=== PATIENT | male | born 1960 | race African-American/Black ===

== ENCOUNTER → 2017-06-27 | Outpatient (CLI) | payer BC | END | disposition home or self-care (01) | LOC: KCIC CT 15:17 | DX: J32.4 Chronic pansinusitis (principal) | CPT/HCPCS: 70486 ==

== ENCOUNTER 2017-12-22 12:30 | Inpatient (IN) | payer BC ==
[~2017-12-22] VITALS: Ht 180.3 cm; Wt 83.9 kg
[2017-12-22 13:15] LABS: BASO % 1 % (0-3); EOS % 1 % (0-3); HEMATOCRIT 46.5 % (39.0-53.0); HEMOGLOBIN 15.5 g/dL (13.0-17.5); LYMPH # 2.3 x10^3/uL (1.0-4.8); LYMPH % 51 % (24-48); MEAN CORPUSCULAR HEMOGLOBIN 30 pg (25-35); MEAN CORPUSCULAR HGB CONC 33 g/dL (31-37); MEAN CORPUSCULAR VOLUME 91 fL (79-100); MONO # 0.5 x10^3/uL (0.0-1.1); MONO % 11 % (0-9); NEUT # 1.6 x10^3uL (1.8-7.7); NEUT % 37 % (31-73); PLATELET COUNT 214 x10^3/uL (140-400); RED BLOOD COUNT 5.12 x10^6/uL (4.30-5.70); RED CELL DISTRIBUTION WIDTH 14.3 % (11.5-14.5); WHITE BLOOD COUNT 4.5 x10^3/uL (4.0-11.0)
--- NOTE | 2017-12-22 13:15 | EKG ---
[facility] [address] [place] [address] Test Date: 2017-12-22 Test Time: 12:42:36 Pat Name: PILAR ZAMARRIPA Department: Room: Gender: M Director Data Management: : 1960 Requested By: REINIER CALLAHAN Order Number: [id number] Reading MD: Serg Tello MD Measurements Intervals [place] Rate: 85 P: 46 [place]: 148 QRS: -21 QRSD: 78 T: 38 QT: 350 QTc: 421 Interpretive Statements SINUS RHYTHM Electronically Signed On 12-26-2017 10:58:56 CDT by Serg Tello MD
--- NOTE | 2017-12-22 13:19 | PHYS DOC ---
Past Medical History Past Medical History: High Cholesterol, Hypertension Past Surgical History: Other Additional Past Surgical Histo: sinus Alcohol Use: None Drug Use: None Adult General Chief Complaint Chief Complaint: DIZZY/LIGHT HEADED HPI HPI Patient is a 57 year old male who presents with this, left chest pain, shortness of air, sweating, left-sided numbness and tingling 2-3 months. States that first he noticed it when he would be eating and now to be any time. Patient denies LOC. Patient states when the chest pain occurs he becomes nauseated, has shortness of air, and began to sweat. She states he does not currently have any chest pain but has left-sided neck tightness and rates it 2 out of 10. Review of Systems Review of Systems Constitutional: Denies fever or chills [] Eyes: Denies change in visual acuity, redness, or eye pain [] HENT: Denies nasal congestion or sore throat [] Respiratory: Denies cough or shortness of breath [] Cardiovascular: Left chest pain GI: Denies abdominal pain. Nausea. Denies vomiting, bloody stools or diarrhea [] : Denies dysuria or hematuria [] Musculoskeletal: Denies back pain or joint pain [] Integument: Denies rash or skin lesions [] Neurologic: Denies headache, focal weakness. Left sided numbness and tingling sensory changes. Dizziness without LOC [] Endocrine: Denies polyuria or polydipsia [] All other systems were reviewed and found to be within normal limits, except as documented in this note. Current Medications Current Medications Allergies Allergies Allergies Coded Allergies Type Severity Reaction Last Updated Verified Penicillins Allergy Unknown rash 08/26/14 No ibuprofen Allergy Unknown rash 12/22/17 Yes Physical Exam Physical Exam Constitutional: Well developed, well nourished, no acute distress, non-toxic appearance. [] HENT: Normocephalic, atraumatic, bilateral external ears normal, oropharynx moist, no oral exudates, nose normal. [] Eyes: PERRLA, EOMI, conjunctiva normal, no discharge. [] Neck: Normal range of motion, no tenderness, supple, no stridor. [] Cardiovascular:Heart rate regular rhythm, no murmur [] Lungs & Thorax: Bilateral breath sounds clear to auscultation [] Abdomen: Bowel sounds normal, soft, no tenderness, no masses, no pulsatile masses. [] Skin: Warm, dry, no erythema, no rash. [] Back: No tenderness, no CVA tenderness. [] Extremities: No tenderness, no cyanosis, no clubbing, ROM intact, no edema. [] Neurologic: Alert and oriented X 3, normal motor function, normal sensory function, no focal deficits noted. [] Psychologic: Affect normal, judgement normal, mood normal. [] Current Patient Data Vital Signs Vital Signs Date Time Temp Pulse Resp B/P (MAP) Pulse Ox O2 Delivery O2 Flow Rate FiO2 12/22/17 12:43 99.0 87 20 141/91 (108) 98 Room Air 99.0 Lab Values Laboratory Tests Test 12/22/17 12:40 12/22/17 13:35 White Blood Count 4.5 x10^3/uL (4.0-11.0) Red Blood Count 5.12 x10^6/uL (4.30-5.70) Hemoglobin 15.5 g/dL (13.0-17.5) Hematocrit 46.5 % (39.0-53.0) Mean Corpuscular Volume 91 fL (79-100) Mean Corpuscular Hemoglobin 30 pg (25-35) Mean Corpuscular Hemoglobin Concent 33 g/dL (31-37) Red Cell Distribution Width 14.3 % (11.5-14.5) Platelet Count 214 x10^3/uL (140-400) Neutrophils (%) (Auto) 37 % (31-73) Lymphocytes (%) (Auto) 51 % (24-48) H Monocytes (%) (Auto) 11 % (0-9) H Eosinophils (%) (Auto) 1 % (0-3) Basophils (%) (Auto) 1 % (0-3) Neutrophils # (Auto) 1.6 x10^3uL (1.8-7.7) L Lymphocytes # (Auto) 2.3 x10^3/uL (1.0-4.8) Monocytes # (Auto) 0.5 x10^3/uL (0.0-1.1) Eosinophils # (Auto) 0.0 x10^3/uL (0.0-0.7) Basophils # (Auto) 0.0 x10^3/uL (0.0-0.2) Sodium Level 138 mmol/L (136-145) Potassium Level 4.6 mmol/L (3.5-5.1) Chloride Level 101 mmol/L (98-107) Carbon Dioxide Level 28 mmol/L (21-32) Anion Gap 9 (6-14) Blood Urea Nitrogen 17 mg/dL (8-26) Creatinine 1.4 mg/dL (0.7-1.3) H Estimated GFR (Cockcroft-Gault) 63.4 BUN/Creatinine Ratio 12 (6-20) Glucose Level 113 mg/dL (70-99) H Calcium Level 10.1 mg/dL (8.5-10.1) Total Bilirubin 0.8 mg/dL (0.2-1.0) Aspartate Amino Transferase (AST) 31 U/L (15-37) Alanine Aminotransferase (ALT) 37 U/L (16-63) Alkaline Phosphatase 74 U/L (46-116) Troponin I Quantitative < 0.017 ng/mL (0.000-0.055) Total Protein 8.5 g/dL (6.4-8.2) H Albumin 4.6 g/dL (3.4-5.0) Albumin/Globulin Ratio 1.2 (1.0-1.7) Urine Opiates Screen Neg (NEG) Urine Methadone Screen Neg (NEG) Urine Barbiturates Neg (NEG) Urine Phencyclidine Screen Neg (NEG) Urine Amphetamine/Methamphetamine Neg (NEG) Urine Benzodiazepines Screen Neg (NEG) Urine Cocaine Screen Neg (NEG) Urine Cannabinoids Screen Neg (NEG) Urine Ethyl Alcohol Neg (NEG) Laboratory Tests 12/22/17 12:40 Laboratory Tests 12/22/17 12:40 EKG EKG Sinus rhythm, no STEMI Interpretation Time: [address] Man Radiology/Procedures Radiology/Procedures Chest xray Impressions: [facility] [address] [place] [address] IMAGING REPORT Signed PATIENT: PILAR ZAMARRIPA ACCOUNT: [id number] : 1960 LOCATION: ER AGE: 57 SEX: M EXAM STATUS: REG ER ORD. PHYSICIAN: BAFUS,REINIER M DIRECTOR BIOSTATISTICS REASON: Chest pain PROCEDURE: CHEST PA & LATERAL EXAM: Chest, 2 views. HISTORY: Dizziness and pain. COMPARISON: None. FINDINGS: Frontal and lateral views the chest are obtained. There is no infiltrate, pleural effusion or pneumothorax. The heart is normal in size. IMPRESSION: No acute pulmonary finding. Electronically signed by: Janet Rees MD (12/22/2017 1:27 PM) [facility] DICTATED and SIGNED BY: JANET REES MD DATE: 12/22/17 1326 Course & Med Decision Making Course & Med Decision Making Patient is a 57 year old male who presents with this, left chest pain, shortness of air, sweating, left-sided numbness and tingling 2-3 months. States that first he noticed it when he would be eating and now to be any time. Patient states that the symptoms have been happening 2-3 times a day for the last 2-3 months. Patient denies LOC. Patient states when the chest pain occurs he becomes nauseated, has shortness of air, and began to sweat. She states he does not currently have any chest pain but has left-sided neck tightness and rates it 2 out of 10. Heart rate there are no carotid bruits heard. EKG shows sinus rhythm and no STEMI of which was read by Dr. Man. Patient does not currently have any numbness or tingling and has equal sensation in all extremities and on his face. Patient has no weaknesses or visual changes. Patient states sometimes his left eye will get blurry at times. Patient's neurologically intact. Patient denies headache. Patient's abdomen is soft and nontender without masses. Patient denies a fever. Patient states he does not smoke do drugs or drink alcohol. Patient is allergic to penicillin and ibuprofen. Patient states he takes a baby aspirin daily and takes a cholesterol medication he cannot remember name of. Patient states in the past he was told that his triglycerides 800. Patient states that he had a stress test 3 years ago and everything was normal. Patient also has a history of an enlarged prostate. Has no extremity edema. Patient speaks clearly and in full sentences. Heart Score is a 4. Blood work is unremarkable. Chest xray shows no acute findings. Patient is stable and in no distress. Patient is admitted under Dr Booker with a Cardiology consult. Staff Physician Addendum: I was working in the ER during the course of this patient's visit. I was available for consultation as needed, but I was not directly involved in the care of this patient. [] Dragon Disclaimer Dragon Disclaimer This electronic medical record was generated, in whole or in part, using a voice recognition dictation system. NIHSS Stroke Scale NIH Stroke Scale: NIH Stroke Scale Response (Comments) Value Level of Consciousness: 0 Alert/Responsive 0 LOC Questions: 0 Answers both correctly 0 LOC Commands: 0 Performs both tasks 0 Best Gaze: 0 Normal 0 Visual: 0 No visual loss 0 Facial Palsy: 0 Normal, symmetrical 0 Motor - Left Arm 0 No drift 0 Motor - Right Arm 0 No drift 0 Motor - Left Leg 0 No drift 0 Motor: Right Leg 0 No drift 0 Limb Ataxia: 0 Absent 0 Sensory: 0 No loss 0 Best Language: 0 Normal 0 Dysathria: 0 Normal 0 Extinction and Inattention: 0 Normal 0 Total 0 Departure Departure Impression: Primary Impression: Chest pain Disposition: 09 ADMITTED INPATIENT Admitting Physician: Kae Booker Condition: STABLE Referrals: UNKNOWN PCP NAME (PCP) Problem Qualifiers Primary Impression: Chest pain Chest pain type: unspecified Qualified Codes: R07.9 - Chest pain, unspecified REINIER CALLAHAN APRN Dec 22, 2017 13:19 SOFIA MAN MD Dec 22, 2017 18:13
[2017-12-22 13:25] LABS: CALCIUM 10.1 mg/dL (8.5-10.1); CREATININE 1.4 mg/dL (0.7-1.3); GFR 63.4; POTASSIUM 4.6 mmol/L (3.5-5.1)
[2017-12-22 13:31] LABS: ALBUMIN 4.6 g/dL (3.4-5.0); ALBUMIN/GLOBULIN RATIO 1.2 (1.0-1.7); TOTAL BILIRUBIN 0.8 mg/dL (0.2-1.0); TOTAL PROTEIN 8.5 g/dL (6.4-8.2)
--- NOTE | 2017-12-22 13:31 | RAD ---
EXAM: Chest, 2 views. HISTORY: Dizziness and pain. COMPARISON: None. FINDINGS: Frontal and lateral views the chest are obtained. There is no infiltrate, pleural effusion or pneumothorax. The heart is normal in size. IMPRESSION: No acute pulmonary finding. Electronically signed by: Janet Pearson MD (12/22/2017 1:27 PM) [place] [id number]
[2017-12-22 13:56] LABS: AMPHETAMINE/METHAMPHETAMINE NEG (NEG); BARBITURATES NEG (NEG); BENZODIAZEPINES NEG (NEG); CANNABINOIDS NEG (NEG); COCAINE NEG (NEG); METHADONE NEG (NEG); OPIATES NEG (NEG); PHENCYCLIDINE NEG (NEG)
[2017-12-22] MEDS ORDERED: fentaNYL PF VIAL 100 MCG/2 ML VIAL IV PRN (14:00)
[2017-12-22] MEDS ORDERED: NITROGLYCERIN SUBLINGUAL 0.4 MG BOTTLE OF 25. SL PRN (14:00)
[2017-12-22] MEDS ORDERED: ACETAMINOPHEN 325 MG TABLET. PO PRN (14:00)
[2017-12-22] MEDS ORDERED: ONDANSETRON PF 4 MG/2 ML VIAL. IV PRN (14:00)
--- NOTE | 2017-12-22 16:00 | PDOC2 ---
ZOË SHAFFER APRN 12/22/17 1600: CARDIAC CONSULT DATE OF CONSULT Date of Consult DATE: 12/22/17 TIME: 15:58 REASON FOR CONSULT Reason for Consult: Chest pain Dizziness REFERRING PHYSICIAN Referring Physician: Kathia Henry APRN SOURCE Source: Chart review, Patient HISTORY OF PRESENT ILLNESS HISTORY OF PRESENT ILLNESS This is a 57 yo male who presented with complaints of ongoing chest pain for the last 2-3 moths. Describes pain as sharp. Located in his left chest. Occurs 2 -3 times per day and lasts only seconds. Resolved without intervention. Not associated with activity. When it initially occurred, seems to come on after eating. Within the last week, does not seem to be associated with eating. Pain associated with dizziness and nausea. Has also experienced some numbness that begins on the left side of his face and radiates down his left arm. Does have a history of PUD. Take Nexium daily and reports compliance. This morning, belched and had taste of blood in his mouth, which has previously occurred with ulcers. Was seen last year at [facility] for similar-type pain, which he underwent stress test for and was reportedly normal. Was told at that time pain was non-cardiac and was discharged home. PAST MEDICAL HISTORY Cardiovascular: Hyperlipidemia Pulmonary: No pertinent hx CENTRAL NERVOUS SYSTEM: Other (no pertinent hx) GI: GERD, Peptic Ulcer disease Heme/Onc: No pertinent hx Hepatobiliary: No pertinent hx Psych: No pertinent hx Musculoskeletal: Osteoarthritis Rheumatologic: Gout Infectious disease: No pertinent hx ENT: No pertinent hx Renal/: Benign prostatic enlarg. Endocrine: No pertinent hx, Hyperthyroidism PAST SURGICAL HISTORY Past Surgical History: Cholecystectomy FAMILY HISTORY Family History: Hypertension SOCIAL HISTORY Smoke: No ALCOHOL: none Drugs: None Lives: Alone ALLERGIES ALLERGIES: Coded Allergies: Penicillins (Unverified Allergy, Unknown, rash, 08/26/14) ibuprofen (Verified Allergy, Unknown, rash, 12/22/17) ROS Review of System 14 point ROS conducted with pertinent positives noted above in HPI. PHYSICAL EXAM General: Alert, Oriented X3, Cooperative, No acute distress HEENT: Atraumatic, Mucous membr. moist/pink Lungs: Clear to auscultation, Normal air movement, Other (no chest tenderness upon palpation) Heart: Regular rate, Normal S1, Normal S2 Abdomen: Soft, No tenderness Extremities: No edema, Normal pulses Skin: No breakdown, No significant lesion Neuro: Normal speech, Sensation intact Psych/Mental Status: Mental status NL, Mood NL MUSCULOSKELETAL: Osteoarthritic changes both hands VITALS VITALS Vital Signs Date Time Temp Pulse Resp B/P (MAP) Pulse Ox O2 Delivery O2 Flow Rate FiO2 12/22/17 15:05 76 18 98 12/22/17 12:43 99.0 141/91 (108) Room Air 99.0 LABS Lab: Laboratory Tests Test 12/22/17 12:40 12/22/17 13:35 White Blood Count 4.5 x10^3/uL (4.0-11.0) Red Blood Count 5.12 x10^6/uL (4.30-5.70) Hemoglobin 15.5 g/dL (13.0-17.5) Hematocrit 46.5 % (39.0-53.0) Mean Corpuscular Volume 91 fL (79-100) Mean Corpuscular Hemoglobin 30 pg (25-35) Mean Corpuscular Hemoglobin Concent 33 g/dL (31-37) Red Cell Distribution Width 14.3 % (11.5-14.5) Platelet Count 214 x10^3/uL (140-400) Neutrophils (%) (Auto) 37 % (31-73) Lymphocytes (%) (Auto) 51 % (24-48) Monocytes (%) (Auto) 11 % (0-9) Eosinophils (%) (Auto) 1 % (0-3) Basophils (%) (Auto) 1 % (0-3) Neutrophils # (Auto) 1.6 x10^3uL (1.8-7.7) Lymphocytes # (Auto) 2.3 x10^3/uL (1.0-4.8) Monocytes # (Auto) 0.5 x10^3/uL (0.0-1.1) Eosinophils # (Auto) 0.0 x10^3/uL (0.0-0.7) Basophils # (Auto) 0.0 x10^3/uL (0.0-0.2) Sodium Level 138 mmol/L (136-145) Potassium Level 4.6 mmol/L (3.5-5.1) Chloride Level 101 mmol/L (98-107) Carbon Dioxide Level 28 mmol/L (21-32) Anion Gap 9 (6-14) Blood Urea Nitrogen 17 mg/dL (8-26) Creatinine 1.4 mg/dL (0.7-1.3) Estimated GFR (Cockcroft-Gault) 63.4 BUN/Creatinine Ratio 12 (6-20) Glucose Level 113 mg/dL (70-99) Calcium Level 10.1 mg/dL (8.5-10.1) Total Bilirubin 0.8 mg/dL (0.2-1.0) Aspartate Amino Transf (AST/SGOT) 31 U/L (15-37) Alanine Aminotransferase (ALT/SGPT) 37 U/L (16-63) Alkaline Phosphatase 74 U/L (46-116) Troponin I Quantitative < 0.017 ng/mL (0.000-0.055) Total Protein 8.5 g/dL (6.4-8.2) Albumin 4.6 g/dL (3.4-5.0) Albumin/Globulin Ratio 1.2 (1.0-1.7) Urine Opiates Screen Neg (NEG) Urine Methadone Screen Neg (NEG) Urine Barbiturates Neg (NEG) Urine Phencyclidine Screen Neg (NEG) Urine Amphetamine/Methamphetamine Neg (NEG) Urine Benzodiazepines Screen Neg (NEG) Urine Cocaine Screen Neg (NEG) Urine Cannabinoids Screen Neg (NEG) Urine Ethyl Alcohol Neg (NEG) ASSESSMENT/PLAN ASSESSMENT/PLAN 1. Chest pain, atypical. Initial troponin negative. EKG without significant acute changes. Suspect pain is GI related. 2. Hyperlipidemia 3. PUD, GERD; on Nexium Recommendations Trend enzymes, check lipids Will check echo to assess LV function/presence of WMA Supportive care. EFREN BAZAN MD 12/22/17 1637: CARDIAC CONSULT ASSESSMENT/PLAN ASSESSMENT/PLAN Patient seen and examined. Agree with TURNING LATHE TENDER's assessment and plan. Chest pain with atypical features Cardiac enzymes negative so for Patient stated that he had stress test approximately one year ago at [facility] and was told it was normal He apparently had cardiac catheterization 5-6 years ago and was told he did not need any stent placement He had both stress test and cardiac catheterization for chest pain with similar features Doubt cardiac etiology Check 2-D echo to assess LV systolic function and rule out wall motion abnormalities Thank you for your consultation ZOË SHAFFER APRN Dec 22, 2017 16:00 EFREN BAZAN MD Dec 22, 2017 16:37
[2017-12-22] MEDS ORDERED: SIMV20TA3 PO (16:05)
[2017-12-22] MEDS ORDERED: ESOM20CA PO (16:05)
[2017-12-22] MEDS ORDERED: BACL10TA PO (16:05)
[2017-12-22] MEDS ORDERED: TAMS0.4C97 PO (16:05)
[2017-12-22] MEDS ORDERED: BACLOFEN 10 MG TABLET. PO PRN (16:15)
[2017-12-22] MEDS: PANTOPRAZOLE 40 MG TABLET.DR. PO SCH (16:30)
[2017-12-22] MEDS ORDERED: ASPIRIN 325 MG TABLET PO PRN (17:45)
[2017-12-22 19:00] VITALS: BP 114/79
[2017-12-22] MEDS ORDERED: TAMSULOSIN 0.4 MG CAP.ER.24H. PO SCH (21:00)
[2017-12-22] MEDS ORDERED: SIMVASTATIN 20 MG TABLET PO SCH (21:00)
[2017-12-22 23:00] VITALS: BP 105/70
[2017-12-23 02:10] VITALS: BP 105/76
[2017-12-23 02:15] VITALS: BP 98/68
--- NOTE | 2017-12-23 02:25 | EKG ---
[facility] [address] [place] [address] Test Date: 2017-12-23 Test Time: 02:18:54 Pat Name: PILAR ZAMARRIPA Department: Room: 528 1 Gender: M Fur Grader: JOSE DANIEL : 1960 Requested By: BEENA MONTESINOS Order Number: [id number] Reading MD: Serg Tello MD Measurements Intervals [place] Rate: 73 P: 41 [place]: 156 QRS: -25 QRSD: 86 T: 47 QT: 392 QTc: 436 Interpretive Statements SINUS RHYTHM PVC Electronically Signed On 12-26-2017 11:05:52 CDT by Serg Tello MD
[2017-12-23 03:00] VITALS: BP 118/89
[2017-12-23 07:00] VITALS: BP 99/69
[2017-12-23 07:07] LABS: CHOLESTEROL 136 mg/dL (0-200); HDLC 42 mg/dL (40-60)
[2017-12-23 07:22] LABS: CHOLESTEROL/HDL RATIO 3.2; TRIGLYCERIDES 914 mg/dL (0-150); VLDLC 183 mg/dL (0-40)
--- NOTE | 2017-12-23 08:59 | PDOC1 ---
History and Physical Date of Admission Date of Admission DATE: 12/23/17 TIME: 08:58 Identification/Chief Complaint Chief Complaint chest pain Source Source: Chart review, Patient History of Present Illness History of Present Illness LATE ENTRY, PT SEEN 12/22 beofre 6 pm, discussed with CV midlevel and Dr. Alberts, Mr. Glover, is a 57 year old male who presents with this, left chest pain, shortness of air, sweating, left-sided numbness and tingling 2-3 months. States that first he noticed it when he would be eating and now to be any time. Patient denies LOC. Patient states when the chest pain occurs he becomes nauseated, has shortness of air, and began to sweat. She states he does not currently have any chest pain but has left-sided neck tightness and rates it 2 out of 10. Past Medical History Cardiovascular: Hyperlipidemia Pulmonary: No pertinent hx CENTRAL NERVOUS SYSTEM: Other (no pertinent hx) GI: GERD, Peptic Ulcer disease Heme/Onc: No pertinent hx Hepatobiliary: No pertinent hx Psych: No pertinent hx Musculoskeletal: Osteoarthritis Rheumatologic: Gout Infectious disease: No pertinent hx ENT: No pertinent hx Renal/: Benign prostatic enlarg. Endocrine: No pertinent hx, Hyperthyroidism Past Surgical History Past Surgical History: Cholecystectomy Family History Family History: Hypertension Social History Smoke: No ALCOHOL: none Drugs: None Current Problem List Problem List Problems Medical Problems: (1) Chest pain Status: Acute Current Medications Current Medications Current Medications Ondansetron HCl (Zofran) 4 mg PRN Q8HRS PRN IV NAUSEA/VOMITING; Start 12/22/17 at 14:00; Stop 12/23/17 at 13:59 Fentanyl Citrate (Fentanyl 2ml Vial) 50 mcg PRN Q2HR PRN IV PAIN; Start at 14:00; Stop 12/23/17 at 13:59 Acetaminophen (Tylenol) 650 mg PRN Q4HRS PRN PO FEVER Last administered on 12/23at 06:30; Start 12/22/17 at 14:00; Stop 12/23/17 at 13:59 Nitroglycerin (Nitrostat) 0.4 mg PRN Q5MIN PRN SL CHEST PAIN Last administered on 12/23/17at 02:23; Start 12/22/17 at 14:00; Stop 12/23/17 at 13:59 Baclofen (Lioresal) 10 mg PRN QHS PRN PO muscle pain; Start 12/22/17 at 16:15 Tamsulosin HCl (Flomax) 0.4 mg HS PO Last administered on 12/22/17at 20:47; Start 12/22/17 at 21:00 Pantoprazole Sodium (Protonix) 40 mg DAILYAC PO ; Start 12/22/17 at 16:30 Simvastatin (Zocor) 20 mg HS PO ; Start 12/22/17 at 21:00 Aspirin (Kirk Aspirin) 325 mg PRN DAILY PRN PO PAIN Last administered on at 18:02; Start 12/22/17 at 17:45 Influenza Virus Vaccine (Afluria Trivalent [id number] Syringe) 0.5 ml ONCE ONCE VAX IM ; Start 12/23/17 at 09:00; Stop 12/23/17 at 09:01 Active Scripts Active Reported Simvastatin 20 Mg Tablet 1 Tab PO QHS Baclofen 10 Mg Tablet 1 Tab PO HS Nexium Capsule (Esomeprazole Magnesium) 20 Mg Capsule.dr 1 Cap PO DAILY Flomax (Tamsulosin Hcl) 0.4 Mg Cap.er.24h 0.4 Mg PO HS Allergies Allergies: Coded Allergies: Penicillins (Unverified Allergy, Unknown, rash, 08/26/14) ibuprofen (Verified Allergy, Unknown, rash, 12/22/17) ROS General: No: Chills, Night Sweats, Fatigue, Malaise, Appetite, Other PSYCHOLOGICAL ROS: No: Anxiety, Behavioral Disorder, Concentration difficultie , Decreased libido, Depression, Disorientation, Hallucinations, Hostility, Irritablity, Memory difficulties, Mood Swings, Obsessive thoughts, Physical abuse, Sexual abuse, Sleep disturbances, Suicidal ideation, Other Eyes: No Blurry vision, No Decreased vision, No Double vision, No Dry eyes, No Excessive tearing, No Eye Pain, No Itchy Eyes, No Loss of vision, No Photophobia , No Scotomata, No Uses contacts, No Uses glasses, No Other HEENT: YES: Heacaches; No: Visual Changes, Hearing change, Nasal congestion, Nasal discharge, Oral lesions, Sinus pain, Sore Throat, Epistaxis, Sneezing, Snoring, Tinnitus, Vertigo, Vocal changes, Other Respiratory: No: Cough, Hemoptysis, Orthopnea, Pleuritic Pain, Shortness of breath, SOB with excertion, Sputum Changes, Stridor, Tachypnea, Wheezing, Other Cardiovascular: yes Chest Pain; No Palpitations, No Orthopnea, No Paroxysmal Noc. Dyspnea, No Edema, No Lt Headedness, No Other Gastrointestinal: Yes Abdominal Pain; No Nausea, No Vomiting, No Diarrhea, No Constipation, No Melena, No Hematochezia, No Other Genitourinary: No Dysuria, No Frequency, No Incontinence, No Hematuria, No Retention, No Discharge, No Urgency, No Pain, No Flank Pain, No Other, No , No , No , No , No , No , No Musculoskeletal: No Gait Disturbance, No Joint Pain, No Joint Stiffness, No Joint Swelling, No Muscle Pain, No Muscular Weakness, No Pain In:, No Swelling In:, No Other Neurological: No Behavorial Changes, No Bowel/Bladder ControlChng, No Confusion , No Dizziness, No Gait Disturbance, No Headaches, No Impaired Coord/balance, No Memory Loss, No Numbness/Tingling, No Seizures, No Speech Problems, No Tremors, No Visual Changes, No Weakness, No Other Skin: Yes Dry Skin; No Eczema, No Hair Changes, No Lumps, No Mole Changes, No Mottling, No Nail Changes, No Pruritus, No Rash, No Skin Lesion Changes, No Other, No Acne Physical Exam General: Alert, Oriented X3, Cooperative, No acute distress HEENT: PERRLA, Mucous membr. moist/pink Lungs: Clear to auscultation, Normal air movement Heart: S1S2, RRR, no murmurs Abdomen: Normal bowel sounds, Soft Extremities: No cyanosis, No edema, Normal pulses Skin: No rashes, No significant lesion Neuro: Normal speech, Normal tone, Sensation intact, Cranial nerves 3-12 NL Psych/Mental Status: Mental status NL, Mood NL Vitals Vitals Vital Signs Date Time Temp Pulse Resp B/P (MAP) Pulse Ox O2 Delivery O2 Flow Rate FiO2 12/23/17 07:00 97.7 69 16 99/69 (79) 98 Room Air 97.7 Labs Labs Laboratory Tests Test 12/22/17 12:40 12/22/17 13:35 12/23/17 00:01 12/23/17 04:30 White Blood Count 4.5 x10^3/uL (4.0-11.0) Red Blood Count 5.12 x10^6/uL (4.30-5.70) Hemoglobin 15.5 g/dL (13.0-17.5) Hematocrit 46.5 % (39.0-53.0) Mean Corpuscular Volume 91 fL (79-100) Mean Corpuscular Hemoglobin 30 pg (25-35) Mean Corpuscular Hemoglobin Concent 33 g/dL (31-37) Red Cell Distribution Width 14.3 % (11.5-14.5) Platelet Count 214 x10^3/uL (140-400) Neutrophils (%) (Auto) 37 % (31-73) Lymphocytes (%) (Auto) 51 % (24-48) Monocytes (%) (Auto) 11 % (0-9) Eosinophils (%) (Auto) 1 % (0-3) Basophils (%) (Auto) 1 % (0-3) Neutrophils # (Auto) 1.6 x10^3uL (1.8-7.7) Lymphocytes # (Auto) 2.3 x10^3/uL (1.0-4.8) Monocytes # (Auto) 0.5 x10^3/uL (0.0-1.1) Eosinophils # (Auto) 0.0 x10^3/uL (0.0-0.7) Basophils # (Auto) 0.0 x10^3/uL (0.0-0.2) Sodium Level 138 mmol/L (136-145) Potassium Level 4.6 mmol/L (3.5-5.1) Chloride Level 101 mmol/L (98-107) Carbon Dioxide Level 28 mmol/L (21-32) Anion Gap 9 (6-14) Blood Urea Nitrogen 17 mg/dL (8-26) Creatinine 1.4 mg/dL (0.7-1.3) Estimated GFR (Cockcroft-Gault) 63.4 BUN/Creatinine Ratio 12 (6-20) Glucose Level 113 mg/dL (70-99) Calcium Level 10.1 mg/dL (8.5-10.1) Total Bilirubin 0.8 mg/dL (0.2-1.0) Aspartate Amino Transf (AST/SGOT) 31 U/L (15-37) Alanine Aminotransferase (ALT/SGPT) 37 U/L (16-63) Alkaline Phosphatase 74 U/L (46-116) Troponin I Quantitative < 0.017 ng/mL (0.000-0.055) < 0.017 ng/mL (0.000-0.055) < 0.017 ng/mL (0.000-0.055) Total Protein 8.5 g/dL (6.4-8.2) Albumin 4.6 g/dL (3.4-5.0) Albumin/Globulin Ratio 1.2 (1.0-1.7) Urine Opiates Screen Neg (NEG) Urine Methadone Screen Neg (NEG) Urine Barbiturates Neg (NEG) Urine Phencyclidine Screen Neg (NEG) Urine Amphetamine/Methamphetamine Neg (NEG) Urine Benzodiazepines Screen Neg (NEG) Urine Cocaine Screen Neg (NEG) Urine Cannabinoids Screen Neg (NEG) Urine Ethyl Alcohol Neg (NEG) Triglycerides Level 914 mg/dL (0-150) Cholesterol Level 136 mg/dL (0-200) LDL Cholesterol, Calculated mg/dL (0-100) VLDL Cholesterol, Calculated 183 mg/dL (0-40) Non-HDL Cholesterol Calculated 94 mg/dL (0-129) HDL Cholesterol 42 mg/dL (40-60) Cholesterol/HDL Ratio 3.2 Laboratory Tests Test 12/22/17 12:40 12/22/17 13:35 12/23/17 00:01 12/23/17 04:30 White Blood Count 4.5 x10^3/uL (4.0-11.0) Red Blood Count 5.12 x10^6/uL (4.30-5.70) Hemoglobin 15.5 g/dL (13.0-17.5) Hematocrit 46.5 % (39.0-53.0) Mean Corpuscular Volume 91 fL (79-100) Mean Corpuscular Hemoglobin 30 pg (25-35) Mean Corpuscular Hemoglobin Concent 33 g/dL (31-37) Red Cell Distribution Width 14.3 % (11.5-14.5) Platelet Count 214 x10^3/uL (140-400) Neutrophils (%) (Auto) 37 % (31-73) Lymphocytes (%) (Auto) 51 % (24-48) Monocytes (%) (Auto) 11 % (0-9) Eosinophils (%) (Auto) 1 % (0-3) Basophils (%) (Auto) 1 % (0-3) Neutrophils # (Auto) 1.6 x10^3uL (1.8-7.7) Lymphocytes # (Auto) 2.3 x10^3/uL (1.0-4.8) Monocytes # (Auto) 0.5 x10^3/uL (0.0-1.1) Eosinophils # (Auto) 0.0 x10^3/uL (0.0-0.7) Basophils # (Auto) 0.0 x10^3/uL (0.0-0.2) Sodium Level 138 mmol/L (136-145) Potassium Level 4.6 mmol/L (3.5-5.1) Chloride Level 101 mmol/L (98-107) Carbon Dioxide Level 28 mmol/L (21-32) Anion Gap 9 (6-14) Blood Urea Nitrogen 17 mg/dL (8-26) Creatinine 1.4 mg/dL (0.7-1.3) Estimated GFR (Cockcroft-Gault) 63.4 BUN/Creatinine Ratio 12 (6-20) Glucose Level 113 mg/dL (70-99) Calcium Level 10.1 mg/dL (8.5-10.1) Total Bilirubin 0.8 mg/dL (0.2-1.0) Aspartate Amino Transf (AST/SGOT) 31 U/L (15-37) Alanine Aminotransferase (ALT/SGPT) 37 U/L (16-63) Alkaline Phosphatase 74 U/L (46-116) Troponin I Quantitative < 0.017 ng/mL (0.000-0.055) < 0.017 ng/mL (0.000-0.055) < 0.017 ng/mL (0.000-0.055) Total Protein 8.5 g/dL (6.4-8.2) Albumin 4.6 g/dL (3.4-5.0) Albumin/Globulin Ratio 1.2 (1.0-1.7) Urine Opiates Screen Neg (NEG) Urine Methadone Screen Neg (NEG) Urine Barbiturates Neg (NEG) Urine Phencyclidine Screen Neg (NEG) Urine Amphetamine/Methamphetamine Neg (NEG) Urine Benzodiazepines Screen Neg (NEG) Urine Cocaine Screen Neg (NEG) Urine Cannabinoids Screen Neg (NEG) Urine Ethyl Alcohol Neg (NEG) Triglycerides Level 914 mg/dL (0-150) Cholesterol Level 136 mg/dL (0-200) LDL Cholesterol, Calculated mg/dL (0-100) VLDL Cholesterol, Calculated 183 mg/dL (0-40) Non-HDL Cholesterol Calculated 94 mg/dL (0-129) HDL Cholesterol 42 mg/dL (40-60) Cholesterol/HDL Ratio 3.2 VTE Prophylaxis Ordered VTE Prophylaxis Devices: No VTE Pharmacological Prophylaxi: No Assessment/Plan Assessment/Plan chest pain, poss angina, r.o ACS, but story atypical, and recent negative stress test known GERD, prior Fany pain possibly worse after eating. BEENA MONTESINOS MD Dec 23, 2017 08:59
--- NOTE | 2017-12-23 09:07 | PDOC2 ---
GI CONSULT Reason For Consult: GERD, chest pain HPI: HPI: 57 y/o male admitted yesterday afternoon. Reports severe headache, dizziness, low back pain, and stabbing central chest pain w/ radiation to left arm ( "numbness"). Cardiology following. GI-[facility], has h/o GERD. Has been controlled on Nexium QD for years. Last EGD w/ Dr. Nguyễn 1.5 years ago @ [facility], reportedly normal. Was told had an ulcer at one point before that. With Nexium, no reflux/heartburn/dyspepsia but burps occasionally after eating. No dysphagia. This morning feels a little nauseous - "unsettled." No vomiting. No abd pain. No diarrhea or constipation. No hematochezia or melena. Lost some weight (~6 pounds) a couple months ago. Appetite has been stable. Last colonoscopy reportedly normal w/ last EGD. S/p cholecystectomy for sludge. No liver or pancreas history. Daily Excedrin for daily headaches. Tried a different medication for LEWIS in the past but it made him feel "out of it" so he stopped. PMH: PMH: GERD, PUD, HLD, headaches, gout, BPH, cholecystectomy, sinus surgeries FH: Family History: Cancer (grandparent had colon cancer) Social History: Smoke: No ALCOHOL: none Drugs: None ROS: GEN: Denies fevers, chills, sweats HEENT: Denies blurred vision, sore throat CV: +CP RESP: Denies shortness of air, cough GI: Per HPI : Denies hematuria, dysuria ENDO: Denies weight changes NEURO: +numbness +headache MSK: Denies weakness, joint pain/swelling SKIN: Denies jaundice, pruritus Vitals: Vitals: Vital Signs Date Time Temp Pulse Resp B/P (MAP) Pulse Ox O2 Delivery O2 Flow Rate FiO2 12/23/17 07:00 97.7 69 16 99/69 (79) 98 Room Air 97.7 Labs: Labs: Laboratory Tests Test 12/22/17 12:40 12/22/17 13:35 12/23/17 00:01 12/23/17 04:30 White Blood Count 4.5 x10^3/uL (4.0-11.0) Red Blood Count 5.12 x10^6/uL (4.30-5.70) Hemoglobin 15.5 g/dL (13.0-17.5) Hematocrit 46.5 % (39.0-53.0) Mean Corpuscular Volume 91 fL (79-100) Mean Corpuscular Hemoglobin 30 pg (25-35) Mean Corpuscular Hemoglobin Concent 33 g/dL (31-37) Red Cell Distribution Width 14.3 % (11.5-14.5) Platelet Count 214 x10^3/uL (140-400) Neutrophils (%) (Auto) 37 % (31-73) Lymphocytes (%) (Auto) 51 % (24-48) Monocytes (%) (Auto) 11 % (0-9) Eosinophils (%) (Auto) 1 % (0-3) Basophils (%) (Auto) 1 % (0-3) Neutrophils # (Auto) 1.6 x10^3uL (1.8-7.7) Lymphocytes # (Auto) 2.3 x10^3/uL (1.0-4.8) Monocytes # (Auto) 0.5 x10^3/uL (0.0-1.1) Eosinophils # (Auto) 0.0 x10^3/uL (0.0-0.7) Basophils # (Auto) 0.0 x10^3/uL (0.0-0.2) Sodium Level 138 mmol/L (136-145) Potassium Level 4.6 mmol/L (3.5-5.1) Chloride Level 101 mmol/L (98-107) Carbon Dioxide Level 28 mmol/L (21-32) Anion Gap 9 (6-14) Blood Urea Nitrogen 17 mg/dL (8-26) Creatinine 1.4 mg/dL (0.7-1.3) Estimated GFR (Cockcroft-Gault) 63.4 BUN/Creatinine Ratio 12 (6-20) Glucose Level 113 mg/dL (70-99) Calcium Level 10.1 mg/dL (8.5-10.1) Total Bilirubin 0.8 mg/dL (0.2-1.0) Aspartate Amino Transf (AST/SGOT) 31 U/L (15-37) Alanine Aminotransferase (ALT/SGPT) 37 U/L (16-63) Alkaline Phosphatase 74 U/L (46-116) Troponin I Quantitative < 0.017 ng/mL (0.000-0.055) < 0.017 ng/mL (0.000-0.055) < 0.017 ng/mL (0.000-0.055) Total Protein 8.5 g/dL (6.4-8.2) Albumin 4.6 g/dL (3.4-5.0) Albumin/Globulin Ratio 1.2 (1.0-1.7) Urine Opiates Screen Neg (NEG) Urine Methadone Screen Neg (NEG) Urine Barbiturates Neg (NEG) Urine Phencyclidine Screen Neg (NEG) Urine Amphetamine/Methamphetamine Neg (NEG) Urine Benzodiazepines Screen Neg (NEG) Urine Cocaine Screen Neg (NEG) Urine Cannabinoids Screen Neg (NEG) Urine Ethyl Alcohol Neg (NEG) Triglycerides Level 914 mg/dL (0-150) Cholesterol Level 136 mg/dL (0-200) LDL Cholesterol, Calculated mg/dL (0-100) VLDL Cholesterol, Calculated 183 mg/dL (0-40) Non-HDL Cholesterol Calculated 94 mg/dL (0-129) HDL Cholesterol 42 mg/dL (40-60) Cholesterol/HDL Ratio 3.2 Allergies: Coded Allergies: Penicillins (Unverified Allergy, Unknown, rash, 08/26/14) ibuprofen (Verified Allergy, Unknown, rash, 12/22/17) Medications: Current Medications Medications (Trade) Dose Ordered Sig/Haider Route PRN Reason Start Time Stop Time Status Last Admin Dose Admin Acetaminophen (Tylenol) 650 mg PRN Q4HRS PRN PO FEVER 12/22/17 14:00 12/23/17 13:59 12/23/17 06:30 Nitroglycerin (Nitrostat) 0.4 mg PRN Q5MIN PRN SL CHEST PAIN 12/22/17 14:00 12/23/17 13:59 12/23/17 02:23 Tamsulosin HCl (Flomax) 0.4 mg HS PO 12/22/17 21:00 12/22/17 20:47 Aspirin (Kirk Aspirin) 325 mg PRN DAILY PRN PO PAIN 12/22/17 17:45 12/22/17 18:02 Imaging: Imaging: CXR IMPRESSION: No acute pulmonary finding. Echocardiogram <Conclusion> The left ventricular systolic function is low normal. Ef 50-55% There is grossly normal LV segmental wall motion. The ascending aorta is dilated at 3.7 cm. The aortic root is mildly enlarged. PE: GEN: NAD HEENT: Atraumatic, PERRL LUNGS: CTAB HEART: RRR ABD: NABS, S/ND/NT EXTREMITY: No edema SKIN: No rashes, no jaundice NEURO/PSYCH: A & O 3 A/P: A/P: Headache, dizziness, chest pain, left arm numbness GERD - on PPI H/o PUD - was told this at one point, reports more recent EGD w/ Dr. Nguyễn was normal CRC screen - UTD S/p cholecystectomy Chronic headaches on Excedrin QD -- Would continue PPI - optimal timing is 30-45 min before breakfast QD. ?alternative treatment for headaches Could try GI cocktail. TAMIKA LOVE Dec 23, 2017 09:07
--- NOTE | 2017-12-23 09:09 | CARD ---
MR#: [id number] Date of Study: 12/23/2017 Ordering Physician: ZOË SHAFFER, Referring Physician: BEENA MONTESINOS Tech: Kaila Dunn RDCS APPROVED REPORT EXAM: Two-dimensional and M-mode echocardiogram with Doppler and color Doppler. Other Information Quality : GoodHR: 65bpm Rhythm : PVC's INDICATION Chest Pain 2D DIMENSIONS RVDd3.0 (2.9-3.5cm)Left Atrium(2D)2.6 (1.6-4.0cm) IVSd1.4 (0.7-1.1cm)Aortic Root(2D)3.5 (2.0-3.7cm) LVDd4.7 (3.9-5.9cm)LVOT Diameter2.1 (1.8-2.4cm) PWd1.0 (0.7-1.1cm)LVDs2.9 (2.5-4.0cm) FS (%) 39.0 %SV70.1 ml LVEF(%)69.4 (>50%) M-Mode DIMENSIONS Left Atrium(MM)3.61 (2.5-4.0cm)Aortic Root3.47 (2.2-3.7cm) Aortic Valve AoV Peak Thomas.139.5cm/sAoV VTI22.5cm AO Peak GR.7.8mmHgLVOT Peak Thomas.101.4cm/s AO Mean GR.4mmHgAVA (VMAX)2.63cm2 CARRIE (VTI)2.60cm2 Mitral Valve MV E Frkebayi87.4cm/sMV E Peak Gr.3mmHg MV DECEL [id number] A Lrdonkub936.9cm/s MV E Mean Gr.1mmHgE/A Ratio0.4 MV A [id number] Pulmonary Valve PV Peak Dqyjofzf21.3cm/s Tricuspid Valve TR P. Fviptthz159zo/sRAP [id number] TR Peak Gr.30mfBgGJQI73hpEg LEFT VENTRICLE The left ventricle is normal size. Proximal septal thickening is noted. The left ventricular systolic function is low normal. Ef 50-55% There is grossly normal LV segmental wall motion. Transmitral Dopp ler flow pattern is Grade I-abnormal relaxation pattern. RIGHT VENTRICLE The right ventricle is normal size. There is normal right ventricular wall thickness. The right ventr icular systolic function is normal. ATRIA The left atrium size is normal. The right atrium size is normal. The interatrial septum is intact wit h no evidence for an atrial septal defect or patent foramen ovale as noted on 2-D or Doppler imaging. AORTIC VALVE The aortic valve is normal in structure and function. The aortic valve is trileaflet. Doppler and Col or Flow revealed trace aortic regurgitation. There is no significant aortic valvular stenosis. MITRAL VALVE The mitral valve is normal in structure and function. There is no evidence of mitral valve prolapse. There is no mitral valve stenosis. Doppler and Color-flow revealed trace mitral regurgitation. TRICUSPID VALVE The tricuspid valve is normal in structure and function. Doppler and Color Flow revealed trace tricus pid regurgitation. The PA pressure was estimated at 21 mmHg. There is no tricuspid valve prolapse or vegetation. There is no tricuspid valve stenosis. PULMONIC VALVE Doppler and Color Flow revealed trace pulmonic valvular regurgitation. There is no pulmonic valvular stenosis. GREAT VESSELS The aortic root is mildly enlarged. The ascending aorta is dilated at 3.7 cm. IVC is not well visuali zed. PERICARDIAL EFFUSION There is no evidence of significant pericardial effusion. Critical Notification Critical Value: No <Conclusion> The left ventricular systolic function is low normal. Ef 50-55% There is grossly normal LV segmental wall motion. The ascending aorta is dilated at 3.7 cm. The aortic root is mildly enlarged. Signed by : Serg Tello, Electronically Approved : 12/23/2017 09:08:15
[2017-12-23] MEDS ORDERED: FENO48TA16 PO (10:55)
[2017-12-23 11:00] VITALS: BP 114/75
[2017-12-23] MEDS ORDERED: ESOM20CA PO (12:02)
[2017-12-23] MEDS ORDERED: LIDO:MAALOX 1:1 20 ML SINGLE DOSE. PO PRN (12:15)
[2017-12-23] MEDS: PANTOPRAZOLE 40 MG TABLET.DR. PO SCH (13:00)
[2017-12-23 15:00] VITALS: BP 112/81
== END 2017-12-23 16:30 | disposition home or self-care (01) | DRG 392 ==
LOC: ER 12:30 → 5 NORTH 13:51
PROVIDERS: ADMIT Internal Medicine; ATTEND Internal Medicine
DX: K21.9 Gastro-esophageal reflux disease without esophagitis (principal); R07.89 Other chest pain; E78.00 Pure hypercholesterolemia, unspecified; E78.5 Hyperlipidemia, unspecified; I10 Essential (primary) hypertension; K27.9 Peptic ulcer, site unspecified, unspecified as acute or chronic, without hemorrhage or perforation; M10.9 Gout, unspecified; M54.5 Low back pain; N40.0 Benign prostatic hyperplasia without lower urinary tract symptoms; M19.90 Unspecified osteoarthritis, unspecified site; E05.90 Thyrotoxicosis, unspecified without thyrotoxic crisis or storm; Z80.0 Family history of malignant neoplasm of digestive organs; Z82.49 Family history of ischemic heart disease and other diseases of the circulatory system; Z90.49 Acquired absence of other specified parts of digestive tract; Z87.11 Personal history of peptic ulcer disease; Z88.0 Allergy status to penicillin; Z88.8 Allergy status to other drugs, medicaments and biological substances; Z79.899 Other long term (current) drug therapy
CPT/HCPCS: 36415; 71046; 80053; 80061; 80307; 84484; 85025; 90471; 90756; 93005; 93306; 99285-25; G0479; Q2035

== ENCOUNTER 2018-10-30 14:19 | Emergency (ER) | payer BC ==
[~2018-10-30] VITALS: Ht 180.3 cm; Wt 74.8 kg
[~2018-10-30 14:19] MED LIST: BACL10TA PO; ESOM20CA PO; FENO48TA16 PO; SIMV20TA3 PO; TAMS0.4C97 PO
[2018-10-30] MEDS ORDERED: oxyCODONE/APAP 5/325 1 TAB TABLET PO ONE (15:00)
[2018-10-30] MEDS ORDERED: ONDANSETRON ODT 4 MG TAB.RAPDIS. PO ONE (15:15)
[2018-10-30 15:33] LABS: BILIRUBIN,URINE NEGATIVE (NEG); CLARITY,URINE CLEAR; COLOR,URINE YELLOW; NITRITE,URINE POSITIVE (NEG); PROTEIN,URINE NEGATIVE (NEG-TRACE); UROBILINOGEN,URINE 0.2 mg/dL (0.2 mg/dL)
[2018-10-30 16:02] LABS: BACTERIA,URINE MODERATE /HPF (0-FEW)
[2018-10-30] MEDS ORDERED: HYOS0.1264 PO (16:21)
[2018-10-30] MEDS ORDERED: CEPH-264 PO (16:21)
--- NOTE | 2018-10-30 16:21 | PHYS DOC ---
Past Medical History Past Medical History: High Cholesterol, Hypertension Past Surgical History: Cholecystectomy Additional Past Surgical Histo: sinus, STRICTURE Alcohol Use: None Drug Use: None Adult General Chief Complaint Chief Complaint: URINE CATHETER PROBLEM HPI HPI Patient is a 57 year old male who presents with bloody urine in his catheter bag. The patient had surgery for a bladder stricture 3 days ago. He thinks that today he might have kinked off the bladder sitting on it. He is having some pain and spasming. He states he is almost out of his hyoscyamine. He denies fever, nausea or vomiting. Review of Systems Review of Systems Constitutional: Denies fever or chills [] Respiratory: Denies cough or shortness of breath [] Cardiovascular: No additional information not addressed in HPI [] GI: See history of present illness : See history of present illness Musculoskeletal: Denies back pain or joint pain [] Integument: Denies rash or skin lesions [] Neurologic: Denies headache, focal weakness or sensory changes [] Endocrine: Denies polyuria or polydipsia [] All other systems were reviewed and found to be within normal limits, except as documented in this note. Current Medications Current Medications Current Medications Medications (Trade) Dose Ordered Sig/Haider Start Time Stop Time Status Last Admin Dose Admin Ondansetron HCl (Zofran Odt) 4 mg 1X ONCE 10/30/18 15:15 10/30/18 15:16 DC 10/30/18 15:15 4 MG Oxycodone/ Acetaminophen (Percocet 5/325) 1 tab 1X ONCE 10/30/18 15:00 10/30/18 15:01 DC 10/30/18 14:56 1 TAB Allergies Allergies Allergies Coded Allergies Type Severity Reaction Last Updated Verified Penicillins Allergy Intermediate rash 10/30/18 No ibuprofen Allergy Intermediate rash 10/30/18 Yes Physical Exam Physical Exam Constitutional: Well developed, well nourished, no acute distress, non-toxic appearance. [] Cardiovascular:Heart rate regular rhythm, no murmur [] Lungs & Thorax: Bilateral breath sounds clear to auscultation [] Abdomen: Bowel sounds normal, soft, no tenderness, no masses, no pulsatile masses. [] Skin: Warm, dry, no erythema, no rash. [] Back: No tenderness, no CVA tenderness. [] Neurologic: Alert and oriented X 3, normal motor function, normal sensory function, no focal deficits noted. [] Psychologic: Affect normal, judgement normal, mood normal. [] Current Patient Data Vital Signs Vital Signs Date Time Temp Pulse Resp B/P (MAP) Pulse Ox O2 Delivery O2 Flow Rate FiO2 10/30/18 16:29 68 16 109/81 (90) 95 Room Air 10/30/18 14:35 98.6 98.6 Lab Values Laboratory Tests Test 10/30/18 15:19 Urine Collection Type Unknown Urine Color Yellow Urine Clarity Clear Urine pH 7.0 Urine Specific [place] <=1.005 Urine Protein Negative mg/dL (NEG-TRACE) Urine Glucose (UA) Negative mg/dL (NEG) Urine Ketones (Stick) Negative mg/dL (NEG) Urine Blood Moderate (NEG) Urine Nitrite Positive (NEG) Urine Bilirubin Negative (NEG) Urine Urobilinogen Dipstick 0.2 mg/dL (0.2 mg/dL) Urine Leukocyte Esterase Small (NEG) Urine RBC 3-5 /HPF (0-2) Urine WBC 5-10 /HPF (0-4) Urine Bacteria Moderate /HPF (0-FEW) EKG EKG [] Radiology/Procedures Radiology/Procedures [] Course & Med Decision Making Course & Med Decision Making Pertinent Labs and Imaging studies reviewed. (See chart for details) []Bladder Scan: performed by me. Indication: Urinary retention Findings: slightly over 100 Joseph of urine retained. After the catheter was emptied and drained the urine that was retrieved was pale yellow with no sign of hematuria There is evidence of a UTI. The patient is to continue his Bactrim DS at home and we will add in Keflex. He had a reaction top fluoroquinolones in the past. Dragon Disclaimer Dragon Disclaimer This electronic medical record was generated, in whole or in part, using a voice recognition dictation system. Departure Departure Impression: Primary Impression: UTI (urinary tract infection) Disposition: 01 HOME, SELF-CARE Condition: STABLE Referrals: UNKNOWN PCP NAME (PCP) Patient Instructions: Indwelling Urinary Catheter Care-Brief Additional Instructions: Take the medication as directed. Follow-up with your surgeon at your scheduled a ppointment for recheck. If worsening return to the emergency department. Scripts Hyoscyamine Sulfate (LEVSIN) 0.125 Mg Tablet 1 TAB PO TID for bladder spasm, #30 TAB 1 Refill Prov: KEANU TENA APRN 10/30/18 Cephalexin (KEFLEX) 500 Mg Capsule 500 MG PO QID for UTI for 10 Days, #40 CAP Prov: KEANU TENA APRN 10/30/18 KEANU TENA APRN Oct 30, 2018 16:21
[2018-10-30 16:29] VITALS: BP 109/81
[2018-11-02] MEDS ORDERED: ESOM20CA PO (17:18)
[2018-11-02] MEDS ORDERED: B CO PO (17:18)
[2018-11-02] MEDS ORDERED: FOLI1TAB16 PO (17:18)
[2018-11-02] MEDS ORDERED: AMLO2.5T5 PO (17:18)
[2018-11-02] MEDS ORDERED: BIOT1TAB12 PO (17:18)
[2018-11-02] MEDS ORDERED: CHLO1TAB PO (17:18)
== END 2018-10-30 16:27 | disposition home or self-care (01) ==
LOC: ER 14:19
DX: N39.0 Urinary tract infection, site not specified (principal); E78.00 Pure hypercholesterolemia, unspecified; I10 Essential (primary) hypertension; Z90.49 Acquired absence of other specified parts of digestive tract; Z88.0 Allergy status to penicillin; Z88.6 Allergy status to analgesic agent
CPT/HCPCS: 81001; 87086; 99285; Q0162; 87186

== ENCOUNTER 2019-01-14 22:40 | Emergency (ER) | payer BC ==
[~2019-01-14] VITALS: Ht 180.3 cm; Wt 78.0 kg
[~2019-01-14 22:40] MED LIST changes: +AMLO2.5T5 PO; +B CO PO; +BIOT1TAB12 PO; +CEPH-264 PO; +CHLO1TAB PO; +FOLI1TAB16 PO; +HYOS0.1264 PO
[2019-01-14 22:45] VITALS: BP 108/87
--- NOTE | 2019-01-14 22:51 | PHYS DOC ---
Past Medical History Past Medical History: High Cholesterol, Hypertension Past Surgical History: Cholecystectomy Additional Past Surgical Histo: sinus, STRICTURE Additional Information: Nonsmoker Alcohol Use: None Drug Use: None Adult General Chief Complaint Chief Complaint: MULTIPLE COMPLAINTS HPI HPI 58 y/o male presents with report of rash to left thigh x 6 days. Reports he also feels that he has had some lip "puffiness" and tingling. Reports was recently finished course of Bactrim for UTI which was prescribed to him by his urologist. Reports concern that he might be allergic to that medication. Denies fever/chills. Reports urinary symptoms have resolved. Denies tongue swelling or SOA. Review of Systems Review of Systems Constitutional: Denies fever or chills Eyes: Denies redness or eye pain HENT: Denies nasal congestion or sore throat; reports some lip "puffiness" Respiratory: Denies cough or shortness of breath Cardiovascular: Denies chest pain or palpitations GI: Denies abdominal pain, nausea, or vomiting : Denies dysuria or hematuria Musculoskeletal: Denies back pain or joint pain Integument: Reports rash and skin lesions Neurologic: Denies headache, focal weakness or sensory changes Complete systems were reviewed and found to be within normal limits, except as documented in this note. Current Medications Current Medications Current Medications Medications (Trade) Dose Ordered Sig/Haider Start Time Stop Time Status Last Admin Dose Admin Dexamethasone (Decadron) 10 mg 1X ONCE 01/14/19 23:30 01/14/19 23:31 DC 01/14/19 23:25 10 MG Diphenhydramine HCl (Benadryl) 25 mg 1X ONCE 01/14/19 23:30 01/14/19 23:31 DC 01/14/19 23:24 25 MG Famotidine (Pepcid Vial) 20 mg 1X ONCE 01/14/19 23:30 01/14/19 23:31 DC 01/14/19 23:24 20 MG Allergies Allergies Allergies Coded Allergies Type Severity Reaction Last Updated Verified Penicillins Allergy Intermediate rash 11/02/18 No ibuprofen Allergy Intermediate rash 10/30/18 Yes Sulfa (Sulfonamide Antibiotics) Allergy Mild 01/14/19 Yes I S O L A T I O N *CONTACT* Allergy Unknown 11/07/18 Yes Physical Exam Physical Exam Constitutional: Well developed, well nourished, no acute distress, non-toxic appearance HENT: Normocephalic, atraumatic, oropharynx moist, no stridor, lips and tongue normal in appearance Eyes: Conjunctiva normal, no discharge Neck: Normal range of motion, no tenderness, supple Cardiovascular: Heart rate normal, regular rhythm Lungs & Thorax: Bilateral breath sounds clear to auscultation, no wheezing Skin: Warm, dry, no erythema, dark circular rash to anterior thigh with occasional central clear vesicles, reports pruritic in nature, no skin sloughing Extremities: No tenderness, ROM intact, no edema Neurologic: Alert and oriented X 3, no focal deficits noted Psychologic: Affect normal, judgement normal Current Patient Data Vital Signs Vital Signs Date Time Temp Pulse Resp B/P (MAP) Pulse Ox O2 Delivery O2 Flow Rate FiO2 01/14/19 22:45 98.1 86 18 108/87 (94) 96 Room Air 98.1 EKG EKG [] Radiology/Procedures Radiology/Procedures [] Course & Med Decision Making Course & Med Decision Making Patient presents with concern for possible allergy to bactrim for which patient was placed on for UTI. Denies urinary symptoms. No airway compromise. Rash does not appears urticarial in nature. Unclear rash etiology. Advised to place bactrim on allergy list to be conservative. Patient given symptomatic treatment. Advised to return for worsening of condition. Patient stable for discharge with outpatient follow-up with PCP. Discussed findings and plan with patient and family, who acknowledge understanding and agreement. Dragon Disclaimer Dragon Disclaimer This electronic medical record was generated, in whole or in part, using a voice recognition dictation system. Departure Departure Impression: Primary Impression: Allergic drug reaction Additional Impression: Pruritic rash Disposition: HOME, SELF-CARE Condition: STABLE Referrals: DONALD DE LA CRUZ MD (PCP) Patient Instructions: Drug Allergy, [id number], Rash, [id number] Additional Instructions: We will place Sulfa on list of drug allergies. Please let your other health professional know concern for possible allergy. Scripts Diphenhydramine Hcl (BENADRYL) 25 Mg Capsule 1 CAP PO Q4-6HRS PRN for ITCHING, #30 CAP 0 Refills Prov: TACHO CONTRERAS DO 01/14/19 Prednisone (PREDNISONE) 20 Mg Tablet 2 TAB PO DAILY, #8 TAB Start this prescription tomorrow, Tuesday01/15/19 Prov: TACHO CONTRERAS DO 01/14/19 Problem Qualifiers Primary Impression: Allergic drug reaction Encounter type: initial encounter Qualified Codes: T78.40XA - Allergy, un specified, initial encounter TACHO CONTRERAS DO Jan 14, 2019 22:51
[2019-01-14] MEDS ORDERED: PRED20TA PO (23:15)
[2019-01-14] MEDS ORDERED: DIPH25CA58 PO (23:15)
[2019-01-14] MEDS ORDERED: diphenhydrAMINE HCL 25 MG CAPSULE PO ONE (23:30)
[2019-01-14] MEDS ORDERED: DEXAMETHASONE 4 MG TABLET PO ONE (23:30)
[2019-01-14] MEDS ORDERED: FAMOTIDINE 20 MG/2 ML VIAL IVP ONE (23:30)
== END 2019-01-14 23:35 | disposition home or self-care (01) ==
LOC: ER 22:40
DX: T50.995A Adverse effect of other drugs, medicaments and biological substances, initial encounter (principal); E78.00 Pure hypercholesterolemia, unspecified; I10 Essential (primary) hypertension; Z90.49 Acquired absence of other specified parts of digestive tract; Z88.0 Allergy status to penicillin; Z88.6 Allergy status to analgesic agent; Z88.2 Allergy status to sulfonamides; Z91.041 Radiographic dye allergy status; Y92.89 Other specified places as the place of occurrence of the external cause
CPT/HCPCS: 96374; 99284; J3490; J8540; Q0163